=== PATIENT | female | born 1975 | race African-American/Black ===

== ENCOUNTER 2016-08-07 15:48 | Inpatient (IN) | payer OTHER ==
[2016-08-07 18:56] VITALS: BMI 48.5
--- NOTE | 2016-08-07 20:30 | HP ---
CIWA Score - CIWA Score Nausea/Vomitin-Mild Nausea/No Vomiting Muscle Tremors: 3 Anxiety: 4-Mod. Anxious/Guarded Agitation: 4-Moderately Restless Paroxysmal Sweats: 1-Minimal Palms Moist Orientation: 3-Disoriented Date>2 days Tacttile Disturbances: 0-None Auditory Disturbances: 0-None Visual Disturbances: 0-None Headache: 2-Mild CIWA-Ar Total Score: 18 Admission ROS [facility] - HPI Chief Complaint: WITHDRAWAL SX Allergies/Adverse Reactions: Allergies Allergy/AdvReac Type Severity Reaction Status Date / Time fish derived [Fish derived] Allergy Severe Rash Verified 09/05/14 16:20 History of Present Illness: 41 YEARS OLD FEMALE WITH LONG HISTORY OF ALCOHOL NICOTINE DEPENDENCE HAS ASTHMA AND BIPOLAR IS ADMITTED TO DETOX Exam Limitations: No Limitations - Ebola screening Have you traveled outside of the country in the last 21 days: No Have you had contact with anyone from an Ebola affected area: No Have you been sick,other than usual withdrawal symptoms: No Do you have a fever: No - Review of Systems Constitutional: Chills, Changes in sleep, Weight Stable EENT: reports: No Symptoms Reported Respiratory: reports: SOB with Exertion, Productive cough Cardiac: reports: No Symptoms Reported GI: reports: Nausea, Poor Fluid Intake, Indigestion, Abdominal cramping : reports: No Symptoms Reported Musculoskeletal: reports: No Symptoms Reported Integumentary: reports: No Symptoms Reported Neuro: reports: Tremors Endocrine: reports: No Symptoms Reported Hematology: reports: No Symptoms Reported Psychiatric: reports: Judgement Intact, Anxious, Depressed Other Systems: Reviewed and Negative Patient History - Patient Medical History Hx Anemia: No Hx Asthma: Yes Hx Chronic Obstructive Pulmonary Disease (COPD): No Hx Cancer: No Hx Cardiac Disorders: No Hx Congestive Heart Failure: No Hx Hypertension: No Hx Hypercholesterolemia: No Hx Pacemaker: No HX Cerebrovascular Accident: No Hx Seizures: No Hx Dementia: No Hx Diabetes: No Hx Gastrointestinal Disorders: No Hx Liver Disease: No Hx Genitourinary Disorders: No Hx Sexually Transmitted Disorders: No Hx Renal Disease (ESRD): No Hx Thyroid Disease: No Hx Human Immunodeficiency Virus (HIV): No Hx Hepatitis C: No Hx Depression: No Hx Suicide Attempt: Yes (in 2004 , admiited , was given abilify and trazodone, not compliant ) Hx Bipolar Disorder: Yes Hx Schizophrenia: No - Patient Surgical History Past Surgical History: No Hx Neurologic Surgery: No Hx Cataract Extraction: No Hx Cardiac Surgery: No Hx Lung Surgery: No Hx Breast Surgery: No Hx Breast Biopsy: No Hx Abdominal Surgery: No Hx Appendectomy: No Hx Cholecystectomy: No Hx Genitourinary Surgery: No Hx Section: Yes (2014) Hx Orthopedic Surgery: No Anesthesia Reaction: No - PPD History Previous Implant?: Yes Documented Results: Negative w/o proof Implanted On Prior [facility] Admission?: Yes Date: 09/07/14 Results: 0MM PPD to be Administered?: Yes - Reproductive History Patient is a Female of Child Bearing Age (11 -55 yrs old): No Last Menstrual Period: 08/05/16 Patient : No - Smoking Cessation Smoking history: Current every day smoker Have you smoked in the past 12 months: Yes Aproximately how many cigarettes per day: 20 Cigars Per Day: 0 Hx Chewing Tobacco Use: No Initiated information on smoking cessation: Yes 'Breaking Loose' booklet given: 08/07/16 - Substance & Tx. History Hx Alcohol Use: Yes Hx Substance Use: Yes Substance Use Type: Alcohol, Marijuana Hx Substance Use Treatment: Yes - Substances Abused Alcohol Route: Oral Frequency: Daily Amount used: 2 PINTS VOLKA Age of first use: 13 Date of Last Use: 08/07/16 Family Disease History - Family Disease History Family Disease History: Respiratory: Mother Admission Physical Exam [facility] - Vital Signs Vital Signs: Vital Signs - 24 hr 08/07/16 18:54 Temperature 96.4 F L Pulse Rate 80 Respiratory 20 Rate Blood Pressure 133/101 - Physical General Appearance: Yes: Nourished, Appropriately Dressed, Mild Distress, Tremorous, Irritable, Sweating, Anxious HEENTM: Yes: Hearing grossly Normal, Normal ENT Inspection, Normocephalic, Normal Voice Respiratory: Yes: Chest Non-Tender, No Respiratory Distress, No Accessory Muscle Use, Wheezing, Expiration Neck: Yes: Supple, Trachea in good position Breast: Yes: Breasts Symetrical Cardiology: Yes: Regular Rhythm, S1, S2 Abdominal: Yes: Non Tender, Soft Genitourinary: Yes: Within Normal Limits Back: Yes: Normal Inspection Musculoskeletal: Yes: full range of Motion, Gait Steady Extremities: Yes: Normal Inspection, Normal Range of Motion, Non-Tender, Tremors Neurological: Yes: Alert, Motor Strength 5/5, Normal Response, Depressed Affect Integumentary: Yes: Warm, Moist Lymphatic: Yes: Within Normal Limits - Diagnostic (1) Asthma Current Visit: Yes Status: Acute Qualifiers: Asthma severity: mild intermittent Asthma complication type: with status asthmaticus Qualified Code(s): J45.22 - Mild intermittent asthma with status asthmaticus (2) Morbid obesity Current Visit: Yes Status: Chronic Qualifiers: Obesity type: due to excess calories Qualified Code(s): E66.01 - Morbid (severe) obesity due to excess calories (3) Alcohol dependence with uncomplicated withdrawal Current Visit: Yes Status: Acute (4) Nicotine dependence Current Visit: Yes Status: Acute Qualifiers: Nicotine product type: cigarettes Substance use status: uncomplicated Qualified Code(s): F17.210 - Nicotine dependence, cigarettes, uncomplicated Cleared for Admission [facility] - Detox or Rehab [facility] Level of Care: Medically Managed Detox Regimen/Protocol: Librium S Breath Alcohol Content Breath Alcohol Content: 0 Urine Pregancy Test - Result Urine Test Results: Negative- NO Line Present Urine Drug Screen - Results Urine Drug Screen Results: THC-Marijuana
[2016-08-07] MEDS ORDERED: P-EPHED 60MG/TRIPROLIDI 2.5MG TABLET PO PRN (20:34)
[2016-08-07] MEDS ORDERED: diphenhydrAMINE HCL 50 MG CAPSULE PO PRN (20:34)
[2016-08-07] MEDS ORDERED: MENTHOL/PHENOL 1 EACH UD MM PRN (20:34)
[2016-08-07] MEDS ORDERED: LOPERAMIDE HCL 2 MG CAPSULE PO PRN (20:34)
[2016-08-07] MEDS ORDERED: MAG HYDROX/AL HYDROX/SIMETH 30 ML UNIT-DOSE CUP PO PRN (20:34)
[2016-08-07] MEDS ORDERED: IBUPROFEN 400 MG TABLET (FP) PO PRN (20:34)
[2016-08-07] MEDS ORDERED: MAGNESIUM HYDROX 2400MG/30ML ORAL SUSPENSION 30 ML CUP PO PRN (20:34)
[2016-08-07] MEDS ORDERED: chlordiazePOXIDE HCL 25 MG CAPSULE PO PRN (20:34)
[2016-08-07] MEDS ORDERED: MAGNESIUM CITRATE 300 ML BOTTLE PO PRN (20:34)
[2016-08-07] MEDS ORDERED: ALBUTEROL SO4 6.7 GM HFA INHALER IH PRN (20:36)
[2016-08-07] MEDS: chlordiazePOXIDE HCL 25 MG CAPSULE PO SCH (22:47)
[2016-08-07] MEDS: THIAMINE HCL 100 MG TABLET (FP) PO SCH (22:48)
[2016-08-07] MEDS: guaiFENesin/D-METHORPHAN HB 10 ML UNIT-DOSE CUPS PO PRN (22:48)
[2016-08-07 23:03] LABS: URINE APPEARANCE CLEAR; URINE BILIRUBIN NEGATIVE (NEGATIVE); URINE BLOOD NEGATIVE (NEGATIVE); URINE COLOR YELLOW; URINE GLUCOSE (UA) NEGATIVE (NEGATIVE); URINE KETONE NEGATIVE (NEGATIVE); URINE LEUK ESTERASE NEGATIVE (NEGATIVE); URINE NITRITE NEGATIVE (NEGATIVE); URINE PROTEIN NEGATIVE (NEGATIVE); URINE UROBILINOGEN 2.0 E.U/dl E.U./dl (0.2-1.0)
[2016-08-08] MEDS: chlordiazePOXIDE HCL 25 MG CAPSULE PO SCH ×4 (06:08→22:47)
--- NOTE | 2016-08-08 09:37 | CONSULT ---
[facility] Psychiatric Consult - Data Date of interview: 08/08/16 Admission source: [facility] Identifying data: This is 41 years old female intoxicated with Alcohol, Cannabis , Cocainr and Opioids Substance Abuse History: - Smoking Cessation. Smoking history: Current every day smoker. Have you smoked in the past 12 months: Yes. Aproximately how many cigarettes per day: 20. Cigars Per Day: 0. Hx Chewing Tobacco Use: No. Initiated information on smoking cessation: Yes. 'Breaking Loose' booklet given : 08/07/16. - Substance & Tx. History. Hx Alcohol Use: Yes. Hx Substance Use : Yes. Substance Use Type: Alcohol, Marijuana. Hx Substance Use Treatment: Yes. - Substances Abused. Alcohol. Route: Oral. Frequency: Daily. Amount used: 2 PINTS VOLKA. Age of first use: 13. Date of Last Use: 08/07/16. Family Disease History. - Family Disease History. Family Disease History: Respiratory: Mother. Admission Physical Exam [facility]. - Vital Signs Medical History: Asthma, Obesity Psychiatric History: Patiebt reports to carry Schizophrenia, reports most recent psytchiatric admission on 09-20 at [facility], reports taking prior to admission: Geodone 40mg po bid. Trazodone 100mg po qhs. Neurontin 100mg po bid Physical/Sexual Abuse/Trauma History: Denies Additional Comment: Geodone 40mg po bid. Trazodone 100mg po qhs. Neurontin 100mg po bid Mental Status Exam - Mental Status Exam Alert and Oriented to: Person Cognitive Function: Fair Patient Appearance: Unkempt Mood: Sad Affect: Flat Patient Behavior: Sedated Speech Pattern: Delayed Voice Loudness: Mildly Soft/Quiet Thought Process: Goal Oriented Thought Disorder: Being Controlled Hallucinations: Denies Suicidal Ideation: Denies Homicidal Ideation: Denies Insight/Judgement: Fair Sleep: Difficulty falling asleep Appetite: Weight gain Muscle strength/Tone: Mild Hypertonicity Gait/Station: Shuffling Additional Comments: Geodone 40mg po bid. Trazodone 100mg po qhs. Neurontin 100mg po bid Psychiatric Findings - Problem List ([place] 1, 2,3) (1) Alcohol dependence with uncomplicated withdrawal Current Visit: Yes Status: Acute (2) Nicotine dependence Current Visit: Yes Status: Acute Qualifiers: Nicotine product type: cigarettes Substance use status: uncomplicated Qualified Code(s): F17.210 - Nicotine dependence, cigarettes, uncomplicated (3) Morbid obesity Current Visit: Yes Status: Chronic Qualifiers: Obesity type: due to excess calories Qualified Code(s): E66.01 - Morbid (severe) obesity due to excess calories (4) Drug-induced mood disorder Current Visit: No Status: Acute (5) Alcohol dependence Current Visit: No Status: Chronic (6) Cannabis dependence Current Visit: No Status: Chronic (7) Cocaine dependence Current Visit: No Status: Chronic (8) Depressed Current Visit: No Status: Chronic (9) Opioid dependence Current Visit: No Status: Chronic (10) Schizophrenia Current Visit: Yes Status: Acute (11) Schizoaffective disorder, bipolar type Current Visit: Yes Status: Acute - Initial Treatment Plan Initial Treatment Plan: Geodone 40mg po bid. Trazodone 100mg po qhs. Neurontin 100mg po bid
[2016-08-08] MEDS: PRENATAL VITAMINS W/ FOLIC ACID TABLET (FP) PO SCH (11:07)
[2016-08-08] MEDS: ZIPRASIDONE 40 MG CAPSULE (FP) PO SCH ×2 (11:07→22:47)
[2016-08-08] MEDS: BUDESONIDE/FORMETEROL FUMARATE 80/4.5 mcg INHALER IH SCH ×2 (11:07→22:49)
[2016-08-08] MEDS: GABAPENTIN 100 MG CAPSULE (FP) PO SCH ×2 (11:07→22:47)
[2016-08-08 11:28] LABS: MCHC 32.4 g/dl (32.0-36.0); MEAN CELL VOLUME 80.1 fl (80-96); PLATELET COUNT 380 K/MM3 (134-434); RDW 15.9 % (11.6-15.6); WHITE BLOOD COUNT 6.1 K/mm3 (4.0-10.0)
--- NOTE | 2016-08-08 11:33 | PN ---
S CIWA - CIWA Score Nausea/Vomitin Muscle Tremors: 3 Anxiety: 3 Agitation: 3 Paroxysmal Sweats: 3 Orientation: 0-Oriented Tacttile Disturbances: 2-Mild Itch/Numbness/Burn Auditory Disturbances: 0-None Visual Disturbances: 0-None Headache: 0-None Present CIWA-Ar Total Score: 16 S Progress Note (SOAP) Subjective: interrupted sleep, sweats, bodyaches foot rash Objective: 08/08/16 11:31 Vital Signs Temperature 98.1 F 08/08/16 11:26 Pulse Rate 77 08/08/16 11:26 Respiratory Rate 20 08/08/16 11:26 Blood Pressure 156/84 08/08/16 11:26 O2 Sat by Pulse Oximetry (%) Laboratory Tests 08/07/16 08/08/16 22:02 06:30 WBC 6.1 RBC 4.48 Hgb 11.6 Hct 35.9 MCV 80.1 MCHC 32.4 RDW 15.9 H Plt Count 380 MPV 8.0 Urine Color Yellow Urine Appearance Clear Urine pH 7.0 D Ur Specific [place] 1.027 Urine Protein Negative Urine Glucose (UA) Negative Urine Ketones Negative Urine Blood Negative Urine Nitrite Negative Urine Bilirubin Negative Urine Urobilinogen 2.0 e.u/dl H Ur Leukocyte Esterase Negative pending labs pt aox 3 in nad lying in bed Assessment: 08/08/16 11:32 withdrawl sx's tinea pedis Plan: cont. detox increase fluids analgesic balm bid tinactin bid
[2016-08-08 11:36] LABS: ANION GAP 6 (8-16); CO2 30 mmol/L (21-32); GLUCOSE,RANDOM 81 mg/dL (74-106); SGOT/AST 15 U/L (15-37); SGPT/ALT 14 U/L (12-78)
[2016-08-08 11:38] LABS: ALK PHOS 57 U/L (45-117); BILIRUBIN,TOTAL 0.5 mg/dL (0.2-1.0); CALCIUM 8.7 mg/dL (8.5-10.1); CREATININE 0.6 mg/dL (0.55-1.02); TOT PROT 6.3 g/dl (6.4-8.2)
[2016-08-08] MEDS: guaiFENesin/D-METHORPHAN HB 10 ML UNIT-DOSE CUPS PO PRN (12:21)
[2016-08-08] MEDS: traZODone HCL 100 MG TABLET (FP) PO SCH (22:47)
[2016-08-08] MEDS: THIAMINE HCL 100 MG TABLET (FP) PO SCH (22:47)
[2016-08-08] MEDS: TOLNAFTATE 1% CREAM 15 GM TUBE TP SCH (22:50)
[2016-08-08] MEDS: METHYL SALICYLATE/MENTHOL OINT 30 GM TUBE TP SCH (23:21)
[2016-08-09] MEDS: chlordiazePOXIDE HCL 25 MG CAPSULE PO SCH ×3 (05:52→17:44)
[2016-08-09] MEDS: GABAPENTIN 100 MG CAPSULE (FP) PO SCH ×2 (11:03→22:39)
[2016-08-09] MEDS: ZIPRASIDONE 40 MG CAPSULE (FP) PO SCH ×2 (11:03→22:39)
[2016-08-09] MEDS: PRENATAL VITAMINS W/ FOLIC ACID TABLET (FP) PO SCH (11:03)
[2016-08-09] MEDS: TOLNAFTATE 1% CREAM 15 GM TUBE TP SCH ×2 (11:03→22:40)
[2016-08-09] MEDS: BUDESONIDE/FORMETEROL FUMARATE 80/4.5 mcg INHALER IH SCH ×3 (11:04→22:40)
[2016-08-09] MEDS: METHYL SALICYLATE/MENTHOL OINT 30 GM TUBE TP SCH ×2 (11:04→22:39)
--- NOTE | 2016-08-09 12:07 | PN ---
S CIWA - CIWA Score Nausea/Vomitin-No Nausea/No Vomiting Muscle Tremors: 3 Anxiety: 3 Agitation: 4-Moderately Restless Paroxysmal Sweats: 3 Orientation: 0-Oriented Tacttile Disturbances: 0-None Auditory Disturbances: 0-None Visual Disturbances: 0-None Headache: 0-None Present CIWA-Ar Total Score: 13 B[facility] Progress Note (SOAP) Subjective: sweats shakes agitation irritable fungus b/l feet Objective: 08/09/16 12:06 Vital Signs Temperature 98 F 08/09/16 10:16 Pulse Rate 87 08/09/16 10:16 Respiratory Rate 18 08/09/16 10:16 Blood Pressure 149/85 08/09/16 10:16 O2 Sat by Pulse Oximetry (%) Laboratory Tests 08/07/16 08/08/16 08/08/16 22:02 06:30 06:30 WBC 6.1 RBC 4.48 Hgb 11.6 Hct 35.9 MCV 80.1 MCHC 32.4 RDW 15.9 H Plt Count 380 MPV 8.0 Sodium 139 Potassium 3.8 Chloride 103 Carbon Dioxide 30 Anion Gap 6 L BUN 6 L Creatinine 0.6 Creat Clearance w eGFR > 60 Random Glucose 81 D Calcium 8.7 Total Bilirubin 0.5 D AST 15 ALT 14 D Alkaline Phosphatase 57 Total Protein 6.3 L Albumin 3.0 L Urine Color Yellow Urine Appearance Clear Urine pH 7.0 D Ur Specific [place] 1.027 Urine Protein Negative Urine Glucose (UA) Negative Urine Ketones Negative Urine Blood Negative Urine Nitrite Negative Urine Bilirubin Negative Urine Urobilinogen 2.0 e.u/dl H Ur Leukocyte Esterase Negative RPR Titer Hepatitis C Antibody 08/08/16 08/08/16 06:30 06:30 WBC RBC Hgb Hct MCV MCHC RDW Plt Count MPV Sodium Potassium Chloride Carbon Dioxide Anion Gap BUN Creatinine Creat Clearance w eGFR Random Glucose Calcium Total Bilirubin AST ALT Alkaline Phosphatase Total Protein Albumin Urine Color Urine Appearance Urine pH Ur Specific Jean Urine Protein Urine Glucose (UA) Urine Ketones Urine Blood Urine Nitrite Urine Bilirubin Urine Urobilinogen Ur Leukocyte Esterase RPR Titer Nonreactive Hepatitis C Antibody 0.1 awake/alert ambulating no acute distress Assessment: 08/09/16 12:07 withdrawal sx Plan: continue detox increase fluids tinactin cream
[2016-08-09] MEDS: THIAMINE HCL 100 MG TABLET (FP) PO SCH (22:38)
[2016-08-09] MEDS: traZODone HCL 100 MG TABLET (FP) PO SCH (22:39)
[2016-08-09] MEDS: chlordiazePOXIDE 5 MG CAPSULE PO SCH (22:42)
[2016-08-10] MEDS: chlordiazePOXIDE 5 MG CAPSULE PO SCH ×3 (06:46→17:35)
[2016-08-10] MEDS: TOLNAFTATE 1% CREAM 15 GM TUBE TP SCH ×2 (09:50→22:41)
[2016-08-10] MEDS: GABAPENTIN 100 MG CAPSULE (FP) PO SCH ×2 (09:50→22:37)
[2016-08-10] MEDS: PRENATAL VITAMINS W/ FOLIC ACID TABLET (FP) PO SCH (09:50)
[2016-08-10] MEDS: ZIPRASIDONE 40 MG CAPSULE (FP) PO SCH (09:51)
[2016-08-10] MEDS: BUDESONIDE/FORMETEROL FUMARATE 80/4.5 mcg INHALER IH SCH ×2 (09:51→22:39)
[2016-08-10] MEDS: LIDOCAINE 5% TOPICAL PATCH TP SCH (11:32)
[2016-08-10] MEDS: METHYL SALICYLATE/MENTHOL OINT 30 GM TUBE TP SCH ×2 (11:33→22:40)
[2016-08-10] MEDS ORDERED: cloNIDine HCL 0.1 MG TABLET PO ONE (12:04)
[2016-08-10] MEDS: ACETAMINOPHEN 325 MG TABLET (FP) PO PRN ×2 (17:35→22:39)
--- NOTE | 2016-08-10 17:55 | PN ---
Daniel Progress Note Note: Psychiatry Attending's note: Approached by patient. Complaint: oversedation. " I am so sluggish.Too much medication." Ms Wood requests a reduction of geodon/trazodone doses. Nurse Julio Cesar confirmed patient's complaints /concerns. Intervention : .Situation is discussed with the patient. .geodon is lowered to 20 mg po bid .trazodone lowered to 50 mg po hs .Discussed with nurse on duty. .Will monitor response.
[2016-08-10] MEDS: traZODone HCL 50 MG TABLET (FP) PO SCH (22:37)
[2016-08-10] MEDS: chlordiazePOXIDE HCL 10 MG CAPSULE PO SCH (22:38)
[2016-08-10] MEDS: ZIPRASIDONE 20 MG CAPSULE PO SCH (22:38)
[2016-08-10] MEDS: THIAMINE HCL 100 MG TABLET (FP) PO SCH (22:42)
[2016-08-11] MEDS: chlordiazePOXIDE HCL 10 MG CAPSULE PO SCH ×3 (07:29→20:22)
--- NOTE | 2016-08-11 08:40 | PN ---
S Progress Note (SOAP) Subjective: ALERT,NO COMPLAINT Objective: 08/11/16 08:39 Vital Signs Temperature 97.5 F L 08/11/16 07:40 Pulse Rate 83 08/11/16 07:40 Respiratory Rate 18 08/11/16 07:40 Blood Pressure 110/62 08/11/16 07:40 O2 Sat by Pulse Oximetry (%) Assessment: 08/11/16 08:39 DETOX COMPLETED,NO WITHDRAWAL SYMPTOM Plan: DISCHARGE TODAY,FOLLOW UP WITH AFTER CARE PROGRAM ARRANGEMENT
--- NOTE | 2016-08-11 08:45 | DS ---
[facility] Detox Discharge Summary Admission Date: 08/07/16 Discharge Date: 08/11/16 - History Present History: Alcohol Dependence Additional Comments: FOLLOW UP WITH [facility] PROGRAM ARRANGEMENT AND PMD FOR MEDICAL PROBLEM Pertinent Past History: ASTHMA MORBID OBESITY NICOTINE DEPENDENCE SCHIZOAFFECTIVE DISORDER - Physical Exam Results Vital Signs: Vital Signs Temperature 97.5 F L 08/11/16 07:40 Pulse Rate 83 08/11/16 07:40 Respiratory Rate 18 08/11/16 07:40 Blood Pressure 110/62 08/11/16 07:40 O2 Sat by Pulse Oximetry (%) Pertinent Admission Physical Exam Findings: I=WITHDRAWAL SYMPTOM - Treatment Hospital Course: Detox Protocol Followed, Detoxed Safely, Responded well, Discharged Condition Good - Medication Discharge Medications: Ambulatory Orders Albuterol Sulfate Inhaler - [Ventolin HFA Inhaler -] 2 inh IH Q4H PRN #1 canister 09/10/14 Gabapentin [Neurontin -] 100 mg PO TID 08/07/16 Ziprasidone [Geodon] 80 mg PO HS 08/07/16 Gabapentin [Neurontin -] 100 mg PO BID #60 capsule 08/08/16 Trazodone HCl 100 mg PO HS #30 tablet 08/08/16 Ziprasidone [Geodon -] 40 mg PO BID #60 capsule 08/08/16 - AMA Did Patient Leave Against Medical Advice: No
[2016-08-11] MEDS: BUDESONIDE/FORMETEROL FUMARATE 80/4.5 mcg INHALER IH SCH ×2 (10:59→22:58)
[2016-08-11] MEDS: PRENATAL VITAMINS W/ FOLIC ACID TABLET (FP) PO SCH (10:59)
[2016-08-11] MEDS: GABAPENTIN 100 MG CAPSULE (FP) PO SCH ×2 (11:00→22:59)
[2016-08-11] MEDS: ZIPRASIDONE 20 MG CAPSULE PO SCH ×2 (11:00→23:00)
[2016-08-11] MEDS: LIDOCAINE 5% TOPICAL PATCH TP SCH (11:00)
[2016-08-11] MEDS: METHYL SALICYLATE/MENTHOL OINT 30 GM TUBE TP SCH (11:00)
[2016-08-11] MEDS: TOLNAFTATE 1% CREAM 15 GM TUBE TP SCH ×2 (11:02→22:59)
--- NOTE | 2016-08-11 15:33 | PN ---
[facility] Progress Note Note: cancell discharge due to bad weather,snowing,
[2016-08-11] MEDS: THIAMINE HCL 100 MG TABLET (FP) PO SCH (22:59)
[2016-08-11] MEDS: traZODone HCL 50 MG TABLET (FP) PO SCH (22:59)
--- NOTE | 2016-08-12 08:53 | PN ---
S Progress Note (SOAP) Subjective: ALERT,NO COMPLAINT Objective: 08/12/16 08:50 Vital Signs Temperature 97.9 F 08/11/16 23:42 Pulse Rate 91 H 08/11/16 23:42 Respiratory Rate 18 08/12/16 03:22 Blood Pressure 128/80 08/11/16 23:42 O2 Sat by Pulse Oximetry (%) Assessment: 08/12/16 08:51 DETOX COMPLETED,NO WITHDRAWAL SYMPTOM Plan: DISCHARGE TODAY,FOLLOW UP WITH AFTER CARE PROGRAM ARRANGEMENT
--- NOTE | 2016-08-12 09:00 | DS ---
[facility] Detox Discharge Summary Admission Date: 08/07/16 Discharge Date: 08/12/16 - History Present History: Alcohol Dependence Additional Comments: FOLLOW UP WITH AFTER [facility] PROGRAM ARRANGEMENT AND PMD FOR MEDICAL PROBLEM Pertinent Past History: ASTHMA MORBID OBESITY NICOTINE DEPENDENCE SCHIZOAFFECTIVE DISORDER - Physical Exam Results Vital Signs: Vital Signs Temperature 97.9 F 08/11/16 23:42 Pulse Rate 91 H 08/11/16 23:42 Respiratory Rate 18 08/12/16 03:22 Blood Pressure 128/80 08/11/16 23:42 O2 Sat by Pulse Oximetry (%) Pertinent Admission Physical Exam Findings: WITHDRAWAL SYMPTOM - Treatment Hospital Course: Detox Protocol Followed - Medication Discharge Medications: Ambulatory Orders Gabapentin [Neurontin -] 100 mg PO TID 08/07/16 Ziprasidone [Geodon] 80 mg PO HS 08/07/16 Gabapentin [Neurontin -] 100 mg PO BID #60 capsule 08/08/16 Trazodone HCl 100 mg PO HS #30 tablet 08/08/16 Ziprasidone [Geodon -] 40 mg PO BID #60 capsule 08/08/16 Albuterol Sulfate Inhaler - [Ventolin HFA Inhaler -] 2 inh IH Q4H PRN #1 canister 08/11/16
[2016-08-12] MEDS: PRENATAL VITAMINS W/ FOLIC ACID TABLET (FP) PO SCH (09:40)
[2016-08-12] MEDS: GABAPENTIN 100 MG CAPSULE (FP) PO SCH (09:40)
[2016-08-12] MEDS: ZIPRASIDONE 20 MG CAPSULE PO SCH (09:41)
[2016-08-12] MEDS: LIDOCAINE 5% TOPICAL PATCH TP SCH (09:41)
[2016-08-12] MEDS: BUDESONIDE/FORMETEROL FUMARATE 80/4.5 mcg INHALER IH SCH (09:42)
[2016-08-12] MEDS: TOLNAFTATE 1% CREAM 15 GM TUBE TP SCH (09:43)
[2016-08-12 10:41] VITALS: BP 145/90; PULSE 90; TEMP 98.2
== END 2016-08-12 10:01 | disposition home or self-care (01) | DRG 775 ==
LOC: YASAS 15:48 → Y6N 20:37
PROVIDERS: ADMIT Internal Medicine Addiction Medicine; ATTEND Internal Medicine Addiction Medicine
PROC: HZ2ZZZZ Detoxification Services for Substance Abuse Treatment (ICD-10-PCS; principal; 2016-08-07)
DX: F10.230 Alcohol dependence with withdrawal, uncomplicated (principal); F12.20 Cannabis dependence, uncomplicated; F17.210 Nicotine dependence, cigarettes, uncomplicated; F25.0 Schizoaffective disorder, bipolar type; F19.24 Other psychoactive substance dependence with psychoactive substance-induced mood disorder; E66.01 Morbid (severe) obesity due to excess calories; Z68.42 Body mass index [BMI] 45.0-49.9, adult; B35.3 Tinea pedis; J45.909 Unspecified asthma, uncomplicated; Z91.14 Patient's other noncompliance with medication regimen; Z91.5 Personal history of self-harm
CPT/HCPCS: 36415; 80053; 81003; 85027; 86593; 86803; 93005; 93010